=== PATIENT | female | born 1965 | race Two or more races ===

== ENCOUNTER 2018-04-16 12:43 | Emergency (ER) | payer OTHER ==
[~2018-04-16] VITALS: Ht 165.1 cm; Wt 97.1 kg
[2018-04-16 12:58] VITALS: Ht 165.1 cm; Wt 97.1 kg
[2018-04-16 13:56] VITALS: BP 123/72
== END 2018-04-16 13:56 | disposition home or self-care (01) ==
LOC: ED 12:43
DX: J02.9 Acute pharyngitis, unspecified (principal); Z90.710 Acquired absence of both cervix and uterus

== ENCOUNTER 2018-07-02 04:29 | Emergency (ER) | payer SELFPAY ==
[~2018-07-02] VITALS: Ht 165.1 cm; Wt 89.4 kg
[2018-07-02 04:33] VITALS: Ht 165.1 cm; Wt 89.4 kg
[2018-07-02 06:35] VITALS: BP 118/76
== END 2018-07-02 06:35 | disposition home or self-care (01) ==
LOC: ED 04:29
DX: S39.012A Strain of muscle, fascia and tendon of lower back, initial encounter (principal); X50.1XXA Overexertion from prolonged static or awkward postures, initial encounter; Y93.89 Activity, other specified; Y92.89 Other specified places as the place of occurrence of the external cause; Y99.8 Other external cause status
CPT/HCPCS: J1885